=== PATIENT | female | born 1990 | race Asian ===

== ENCOUNTER 2020-07-28 15:42 | Emergency (ER) | payer MEDICAID ==
[~2020-07-28] VITALS: Ht 149.9 cm; Wt 63.6 kg
[2020-07-28] MEDS ORDERED: ONDANSETRON PF 4 MG/2 ML VIAL. IVP ONE (16:30)
[2020-07-28] MEDS ORDERED: FAMOTIDINE 20 MG/2 ML VIAL IVP ONE (16:30)
[2020-07-28] MEDS ORDERED: IV NORMAL SALINE 1000ML BAG 1,000 ML IV ONE (16:30)
[2020-07-28 16:41] LABS: BILIRUBIN,URINE NEGATIVE (NEG); CLARITY,URINE CLEAR; COLOR,URINE YELLOW; NITRITE,URINE NEGATIVE (NEG); PROTEIN,URINE NEGATIVE (NEG-TRACE); UROBILINOGEN,URINE 0.2 mg/dL (0.2 mg/dL)
[2020-07-28 16:46] LABS: BARBITURATES NEG (NEG); BENZODIAZEPINES NEG (NEG); CANNABINOIDS NEG (NEG); COCAINE NEG (NEG); METHADONE NEG (NEG); OPIATES NEG (NEG); PHENCYCLIDINE NEG (NEG)
[2020-07-28 16:49] LABS: AMPHETAMINE/METHAMPHETAMINE NEG (NEG)
[2020-07-28 16:50] LABS: AMORPHOUS SEDIMENT,UR PRESENT /HPF; BACTERIA,URINE 0 /HPF (0-FEW); RBC,URINE 0 /HPF (0-2)
[2020-07-28 17:05] LABS: BASO % 0 % (0-3); EOS % 0 % (0-3); HEMATOCRIT 35.8 % (36.0-47.0); HEMOGLOBIN 11.6 g/dL (12.0-15.5); LYMPH # 1.3 x10^3/uL (1.0-4.8); LYMPH % 11 % (24-48); MEAN CORPUSCULAR HEMOGLOBIN 26 pg (25-35); MEAN CORPUSCULAR HGB CONC 32 g/dL (31-37); MEAN CORPUSCULAR VOLUME 80 fL (79-100); MONO # 0.4 x10^3/uL (0.0-1.1); MONO % 4 % (0-9); NEUT # 10.4 x10^3/uL (1.8-7.7); NEUT % 85 % (31-73); PLATELET COUNT 346 x10^3/uL (140-400); RED BLOOD COUNT 4.45 x10^6/uL (3.50-5.40); RED CELL DISTRIBUTION WIDTH 16.7 % (11.5-14.5); WHITE BLOOD COUNT 12.2 x10^3/uL (4.0-11.0)
--- NOTE | 2020-07-28 17:25 | RAD ---
Ultrasound of the abdomen 07/28/2020 CLINICAL HISTORY: Abdominal pain. TECHNIQUE: A real-time ultrasound examination of the abdomen was performed. Multiple images were obtained. FINDINGS: The gallbladder is well-distended. Echogenic gallstones are seen within the gallbladder. The gallbladder wall thickness is within normal limits. No pericholecystic fluid is seen. The common bile duct measures 2 mm in diameter which is within normal limits. The liver is normal in size and echogenicity. It measures 13.7 cm in length. The visualized portions of the pancreas, spleen and both kidneys are within normal limits. The abdominal aorta tapers normally. The inferior vena cava is within normal limits. No free fluid is seen. IMPRESSION: Cholelithiasis. Otherwise negative study. Electronically signed by: Carlos Serrano MD (07/28/2020 5:22 PM) [id number]
[2020-07-28] MEDS ORDERED: fentaNYL PF VIAL 100 MCG/2 ML VIAL IVP ONE ×2 (17:45→20:00)
[2020-07-28 18:23] LABS: % BANDS 7 % (0-9); % BASOS 1 % (0-3); % LYMPHS 11 % (24-48); % MONOS 1 % (0-10); % SEGS 80 % (35-66)
[2020-07-28 18:25] LABS: ACANTHOCYTES MOD; PLT ESTIMATE ADEQUATE (ADEQUATE)
--- NOTE | 2020-07-28 18:51 | PHYS DOC ---
General Adult EDM: Chief Complaint: ABDOMINAL PAIN HPI: HPI: Patient is a 30 year old female no significant medical history who presents the ED today complaining of mild to moderate intermittent epigastric abdominal pain, symptoms have been going on since afternoon. Denies any nausea vomiting. Denies any diarrhea or fever. Denies any chance she is . Review of Systems: Review of Systems: Constitutional: Denies fever or chills. [] Eyes: Denies change in visual acuity. [] HENT: Denies nasal congestion or sore throat. [] Respiratory: Denies cough or shortness of breath. [] Cardiovascular: Denies chest pain or edema. [] GI: Reports epigastric abdominal pain, denies nausea, vomiting, bloody stools or diarrhea. [] : Denies dysuria. [] Musculoskeletal: Denies back pain or joint pain. [] Integument: Denies rash. [] Neurologic: Denies headache, focal weakness or sensory changes. [] Psychiatric: Denies depression or anxiety. [] Heart Score: Risk Factors: Risk Factors: DM, Current or recent (<one month) smoker, HTN, HLP, family history of CAD, obesity. Risk Scores: Score 0 - 3: 2.5% MACE over next 6 weeks - Discharge Home Score 4 - 6: 20.3% MACE over next 6 weeks - Admit for Clinical Observation Score 7 - 10: 72.7% MACE over next 6 weeks - Early Invasive Strategies Current Medications: Current Medications Medications (Trade) Dose Ordered Sig/Liza Start Time Stop Time Status Last Admin Dose Admin Famotidine (Pepcid Vial) 20 mg 1X ONCE 07/28/20 16:30 07/28/20 16:50 DC 07/28/20 16:49 20 MG Fentanyl Citrate (Fentanyl 2ml Vial) 50 mcg 1X ONCE 07/28/20 17:45 07/28/20 17:47 DC 07/28/20 17:46 50 MCG Ondansetron HCl (Zofran) 4 mg 1X ONCE 07/28/20 16:30 07/28/20 16:50 DC 07/28/20 16:48 4 MG Sodium Chloride 1,000 ml @ 1,000 mls/hr 1X ONCE 07/28/20 16:30 07/28/20 17:29 DC 07/28/20 16:48 1,000 MLS/HR Allergies: Allergies: Allergies Coded Allergies Type Severity Reaction Last Updated Verified No Known Drug Allergies 07/28/20 No Physical Exam: PE: Constitutional: Well developed, well nourished, no acute distress, non-toxic appearance. [] HENT: Normocephalic, atraumatic, bilateral external ears normal, oropharynx moist, no oral exudates, nose normal. [] Eyes: PERRLA, EOMI, conjunctiva normal, no discharge. [] Neck: Normal range of motion, no tenderness, supple, no stridor. [] Cardiovascular:Heart rate regular rhythm, no murmur [] Lungs & Thorax: Bilateral breath sounds clear to auscultation [] Abdomen: Bowel sounds normal, soft, slight epigastric tenderness on exam, slight right upper quadrant tenderness with negative Barros sign, no right lower quadrant tenderness, no guarding, no rebound pain or tenderness, no masses, no pulsatile masses. [] Skin: Warm, dry, no erythema, no rash. [] Back: No tenderness, no CVA tenderness. [] Extremities: No tenderness, no cyanosis, no clubbing, ROM intact, no edema. [] Neurologic: Alert and oriented X 3, normal motor function, normal sensory function, no focal deficits noted. [] Psychologic: Affect normal, judgement normal, mood normal. [] Current Patient Data: Labs: Laboratory Tests Test 07/28/20 15:46 07/28/20 16:02 07/28/20 16:50 Urine Collection Type Unknown Urine Color Yellow Urine Clarity Clear Urine pH 8.0 (<5.0-8.0) Urine Specific [place] 1.020 (1.000-1.030) Urine Protein Negative mg/dL (NEG-TRACE) Urine Glucose (UA) Negative mg/dL (NEG) Urine Ketones (Stick) 40 mg/dL (NEG) Urine Blood Negative (NEG) Urine Nitrite Negative (NEG) Urine Bilirubin Negative (NEG) Urine Urobilinogen Dipstick 0.2 mg/dL (0.2 mg/dL) Urine Leukocyte Esterase Trace (NEG) Urine RBC 0 /HPF (0-2) Urine WBC 1-4 /HPF (0-4) Urine Squamous Epithelial Cells Mod /LPF Urine Amorphous Sediment Present /HPF Urine Bacteria 0 /HPF (0-FEW) Urine Mucus Mod /LPF Urine Opiates Screen Neg (NEG) Urine Methadone Screen Neg (NEG) Urine Barbiturates Neg (NEG) Urine Phencyclidine Screen Neg (NEG) Urine Amphetamine/Methamphetamine Neg (NEG) Urine Benzodiazepines Screen Neg (NEG) Urine Cocaine Screen Neg (NEG) Urine Cannabinoids Screen Neg (NEG) Urine Ethyl Alcohol Neg (NEG) POC Urine HCG, Qualitative Hcg negative (Negative) White Blood Count 12.2 x10^3/uL (4.0-11.0) H Red Blood Count 4.45 x10^6/uL (3.50-5.40) Hemoglobin 11.6 g/dL (12.0-15.5) L Hematocrit 35.8 % (36.0-47.0) L Mean Corpuscular Volume 80 fL (79-100) Mean Corpuscular Hemoglobin 26 pg (25-35) Mean Corpuscular Hemoglobin Concent 32 g/dL (31-37) Red Cell Distribution Width 16.7 % (11.5-14.5) H Platelet Count 346 x10^3/uL (140-400) Neutrophils (%) (Auto) 85 % (31-73) H Lymphocytes (%) (Auto) 11 % (24-48) L Monocytes (%) (Auto) 4 % (0-9) Eosinophils (%) (Auto) 0 % (0-3) Basophils (%) (Auto) 0 % (0-3) Neutrophils # (Auto) 10.4 x10^3/uL (1.8-7.7) H Lymphocytes # (Auto) 1.3 x10^3/uL (1.0-4.8) Monocytes # (Auto) 0.4 x10^3/uL (0.0-1.1) Eosinophils # (Auto) 0.0 x10^3/uL (0.0-0.7) Basophils # (Auto) 0.0 x10^3/uL (0.0-0.2) Segmented Neutrophils % 80 % (35-66) H Band Neutrophils % 7 % (0-9) Lymphocytes % 11 % (24-48) L Monocytes % 1 % (0-10) Basophils % 1 % (0-3) Platelet Estimate Adequate (ADEQUATE) Acanthocytes (Spur Cells) Mod Laboratory Tests 07/28/20 16:50 Vital Signs: Vital Signs Date Time Temp Pulse Resp B/P (MAP) Pulse Ox O2 Delivery O2 Flow Rate FiO2 11/23/20 17:46 24 100 Room Air 07/28/20 16:06 98.2 105 165/100 (121) 98.2 EKG: EKG: [] Radiology/Procedures: Radiology/Procedures: []PROCEDURE: ABDOMEN COMPLETE Ultrasound of the abdomen 07/28/2020 CLINICAL HISTORY: Abdominal pain. TECHNIQUE: A real-time ultrasound examination of the abdomen was performed. Multiple images were obtained. FINDINGS: The gallbladder is well-distended. Echogenic gallstones are seen within the gallbladder. The gallbladder wall thickness is within normal limits. No pericholecystic fluid is seen. The common bile duct measures 2 mm in diameter which is within normal limits. The liver is normal in size and echogenicity. It measures 13.7 cm in length. The visualized portions of the pancreas, spleen and both kidneys are within normal limits. The abdominal aorta tapers normally. The inferior vena cava is within normal limits. No free fluid is seen. IMPRESSION: Cholelithiasis. Otherwise negative study. Electronically signed by: Carlos Serrano MD (07/28/2020 5:22 PM) [id number] DICTATED and SIGNED BY: CARLOS SERRANO MD DATE: 07/28/20 [id number] 0 Course & Med Decision Making: Course & Med Decision Making Pertinent Labs and Imaging studies reviewed. (See chart for details) This is a 30-year-old female patient presenting to the ED today with complaints of epigastric abdominal pain for one day. Negative urine hCG, UA negative. CBC with a WBC of 12.2. CMP with no acute findings, patient is afebrile. Abdominal ultrasound noted for cholelithiasis, no cholecystitis. Pain is well managed. Discharge to home. Follow-up with general surgery in the course of this week. Dragon Disclaimer: Dragon Disclaimer: This electronic medical record was generated, in whole or in part, using a voice recognition dictation system. Departure Departure Impression: Primary Impression: Cholelithiasis Qualified Codes: K80.20 - Calculus of gallbladder without cholecystitis without obstruction Disposition: 01 DC HOME SELF CARE/HOMELESS Condition: STABLE Referrals: NO PCP (PCP) NAZARIO SAMANIEGO MD follow up in the course of this week Patient Instructions: Cholelithiasis, [id number] Additional Instructions: You were evaluated in the emergency room and noted to have gallstones. Please contact the provided general surgeon and follow-up in the course of this week. Avoid eating spicy salty or fried foods. Scripts Hydrocodone/Apap 5-325 (NORCO 5-325 TABLET) 1 Each Tablet 1-2 TAB PO Q4-6HRS, #24 TAB Prov: JASON BULLARD APRN 07/28/20 Ondansetron (ONDANSETRON ODT) 4 Mg Tab.rapdis 1 TAB PO PRN Q6-8HRS, #16 TAB Prov: JASON BULLARD APRN 07/28/20 JASON BULLARD APRN Jul 28, 2020 18:51
[2020-07-28 19:10] LABS: CALCIUM 8.1 mg/dL (8.5-10.1); CREATININE 0.5 mg/dL (0.6-1.0); GFR 146.9; POTASSIUM 3.5 mmol/L (3.5-5.1)
[2020-07-28 19:23] LABS: ALBUMIN 3.6 g/dL (3.4-5.0); ALBUMIN/GLOBULIN RATIO 0.8 (1.0-1.7); MAGNESIUM 2.2 mg/dL (1.8-2.4); TOTAL BILIRUBIN 0.4 mg/dL (0.2-1.0)
[2020-07-28 19:49] VITALS: BP 170/99
[2020-07-28] MEDS ORDERED: HYDR-3164 PO (19:59)
[2020-07-28] MEDS ORDERED: ONDA4TAB12 PO (19:59)
== END 2020-07-28 20:09 | disposition home or self-care (01) ==
LOC: ER 15:42
DX: K80.20 Calculus of gallbladder without cholecystitis without obstruction (principal); R10.13 Epigastric pain
CPT/HCPCS: 36415; 76700; 80053; 80307; 81001; 81025; 83690; 83735; 85007; 85025; 96361; 96374; 96375; 96376; 99285; G0480; J2405; J3010; J3490; J7030

== ENCOUNTER 2020-09-16 13:48 | Emergency (ER) | payer MEDICAID, OTHER ==
[~2020-09-16] VITALS: Ht 149.9 cm; Wt 59.0 kg
[~2020-09-16 13:48] MED LIST: HYDR-3164 PO; ONDA4TAB12 PO
[2020-09-16 14:36] LABS: BILIRUBIN,URINE NEGATIVE (NEG); CLARITY,URINE CLEAR; COLOR,URINE YELLOW; NITRITE,URINE NEGATIVE (NEG); PH,URINE 5.5 (<5.0-8.0); PROTEIN,URINE NEGATIVE (NEG-TRACE); UROBILINOGEN,URINE 0.2 mg/dL (0.2 mg/dL)
[2020-09-16 14:50] LABS: BACTERIA,URINE MODERATE /HPF (0-FEW); RBC,URINE 0 /HPF (0-2)
--- NOTE | 2020-09-16 15:26 | RAD ---
EXAMINATION: US PRE HYSTEROSALPINGOGRAM, 09/16/2020 2:37 PM CLINICAL INDICATION: Vaginal bleeding, TECHNIQUE: Grayscale, color and spectral Doppler ultrasound images of the pelvis per first trimester OB protocol. COMPARISON: None. FINDINGS: The uterus measures 10 x 7 x 7 cm. There is an intrauterine gestational sac containing an embryo with crown-rump length of 2.8 cm, consistent with gestational age 9 weeks 5 days. Sonographic EDC 04/16/20 21. cardiac activity is visualized with heart rate of 173 bpm. The cervix measures 3.7 cm. The right ovary measures 3.1 x 2.2 x 1.6 cm. The left ovary measures 3.2 x 2.0 x 1.9 cm. No adnexal m ass or free fluid. IMPRESSION: Single living intrauterine with gestational age 9 weeks 5 days based on crown-r ump length. Sonographic EDC 04/16/2021. Electronically signed by: Elizabeth Sommer MD (09/16/2020 3:23 PM) [id number]
--- NOTE | 2020-09-16 15:56 | ED.ADGEN ---
Past Medical History Past Medical History: No Pertinent History Past Surgical History: No Surgical History Smoking Status: Never Smoker Alcohol Use: None General Adult EDM: Chief Complaint: ABDOMINAL PAIN IN HPI: HPI: Patient is a 30 year old female, accompanied by her , who presents to the emergency department with complaints of left flank pain that radiates to the lower left quadrant since last night. Patient reports increased urinary frequency but denies any dysuria or hematuria. She denies any nausea, vomiting, diarrhea, cough, fever, sore throat, body aches, or fatigue. Patient also denies any vaginal discharge, odor, or bleeding. Patient states she is currently , she is 3, para 2. Her last menstrual cycle was on July [id number], she is unsure of what her due date will be. Patient does not have a DATA ABSTRACTOR in the area as she recently moved here from [place]. She currently rates her pain a 5 out of 10 on the pain scale, she denies any alleviating factors. Review of Systems: Review of Systems: Complete ROS is negative unless otherwise noted in HPI. Allergies: Allergies: Allergies Coded Allergies Type Severity Reaction Last Updated Verified No Known Drug Allergies 07/28/20 No Physical Exam: PE: See Above Constitutional: Well developed, well nourished, no acute distress, non-toxic appearance. [] HENT: Normocephalic, atraumatic, bilateral external ears normal, nose normal. [] Eyes: PERRLA, EOMI, conjunctiva normal, no discharge. [] Neck: Normal range of motion, no stridor. [] Cardiovascular:Heart rate regular rhythm Lungs & Thorax: Respirations even and unlabored, no retractions, no respiratory distress Abdomen: soft, LLQ TTP, no rebound tenderness, no guarding, no palpable mass Skin: Warm, dry, no erythema, no rash. [] Extremities: No cyanosis, ROM intact, no edema. [] Neurologic: Alert and oriented X 3, no focal deficits noted. [] Psychologic: Affect normal, judgement normal, mood normal. [] Current Patient Data: Labs: Laboratory Tests Test 09/16/20 14:00 09/16/20 14:04 Urine Collection Type Unknown Urine Color Yellow Urine Clarity Clear Urine pH 5.5 (<5.0-8.0) Urine Specific [place] >=1.030 (1.000-1.030) Urine Protein Negative mg/dL (NEG-TRACE) Urine Glucose (UA) Negative mg/dL (NEG) Urine Ketones (Stick) 15 mg/dL (NEG) Urine Blood Negative (NEG) Urine Nitrite Negative (NEG) Urine Bilirubin Negative (NEG) Urine Urobilinogen Dipstick 0.2 mg/dL (0.2 mg/dL) Urine Leukocyte Esterase Small (NEG) Urine RBC 0 /HPF (0-2) Urine WBC 5-10 /HPF (0-4) Urine Squamous Epithelial Cells Many /LPF Urine Bacteria Moderate /HPF (0-FEW) Urine Mucus Marked /LPF POC Urine HCG, Qualitative Hcg positive (Negative) Vital Signs: Vital Signs Date Time Temp Pulse Resp B/P (MAP) Pulse Ox O2 Delivery O2 Flow Rate FiO2 09/16/20 14:00 98.6 85 18 137/89 (105) 100 Room Air 98.6 EKG: EKG: [] Heart Score: Risk Factors: Risk Factors: DM, Current or recent (<one month) smoker, HTN, HLP, family history of CAD, obesity. Risk Scores: Score 0 - 3: 2.5% MACE over next 6 weeks - Discharge Home Score 4 - 6: 20.3% MACE over next 6 weeks - Admit for Clinical Observation Score 7 - 10: 72.7% MACE over next 6 weeks - Early Invasive Strategies Radiology/Procedures: Radiology/Procedures: PROCEDURE: OB < 14 WKS EXAMINATION: US PRE HYSTEROSALPINGOGRAM, 09/16/2020 2:37 PM CLINICAL INDICATION: Vaginal bleeding, TECHNIQUE: Grayscale, color and spectral Doppler ultrasound images of the pelvis per first trimester OB protocol. COMPARISON: None. FINDINGS: The uterus measures 10 x 7 x 7 cm. There is an intrauterine gestational sac containing an embryo with crown-rump length of 2.8 cm, consistent with gestational age 9 weeks 5 days. Sonographic EDC 04/16/2021. cardiac activity is visualized with heart rate of 173 bpm. The cervix measures 3.7 cm. The right ovary measures 3.1 x 2.2 x 1.6 cm. The left ovary measures 3.2 x 2.0 x 1.9 cm. No adnexal mass or free fluid. IMPRESSION: Single living intrauterine with gestational age 9 weeks 5 days based on crown-rump length. Sonographic EDC 04/16/2021. [] Course & Med Decision Making: Course & Med Decision Making Pertinent Labs and Imaging studies reviewed. (See chart for details) [] Dragon Disclaimer: [place] Disclaimer: This electronic medical record was generated, in whole or in part, using a voice recognition dictation system. Departure Departure Impression: Primary Impression: UTI (urinary tract infection) in in first trimester Additional Impression: Flank pain in patient Disposition: 01 DC HOME SELF CARE/HOMELESS Condition: STABLE Referrals: NO PCP (PCP) ALEXIS MCKEON MD Patient Instructions: - Urinary Tract Infection Additional Instructions: Fill prescription(s) and use as directed. Avoid bladder irritants such as caffeine, carbonation, and spicy foods. Increase clear fluids. According to the ultrasound today your estimated due date is April 162020, call Dr. Sheth's office for follow-up appointment this week. Return to the ER if symptoms worsen or fever develops. Scripts Cephalexin (CEPHALEXIN) 500 Mg Capsule 1 CAP PO BID for 7 Days, #14 CAP 0 Refills Prov: DANE DIAMOND APRN 09/16/20 Problem Qualifiers DANE DIAMOND APRN Sep 16, 2020 15:55
[2020-09-16] MEDS ORDERED: CEPH500C PO (16:34)
[2020-09-16 16:37] VITALS: BP 121/84
== END 2020-09-16 17:20 | disposition home or self-care (01) ==
LOC: ER 13:48
DX: O23.41 Unspecified infection of urinary tract in pregnancy, first trimester (principal); R10.32 Left lower quadrant pain; Z3A.09 9 weeks gestation of pregnancy
CPT/HCPCS: 36415; 76801; 81001; 81025; 84702; 86900; 86901; 87086; 99285